=== PATIENT | male | born 1945 | race Caucasian/White ===

== ENCOUNTER 2020-03-20 16:59 | Observation (INO) ==
[2020-03-20] MEDS ORDERED: 0.9 % Sodium Chloride 1,000 ML IVC ONE (17:31)
[2020-03-20 18:07] LABS: Basophils % 0.4 %; Eosinophils # 0.1 K/mcL (0.0-0.6); Eosinophils % 1.1 %; Hematocrit 42.4 % (37.5-50.1); Hemoglobin 14.1 g/dL (12.9-16.9); Immature Granulocytes % 0.1 % (0-4); Lymphocytes % 54.4 %; Mean Corpuscular HGB Conc 33.3 g/dL (31.6-35.5); Mean Corpuscular Hemoglobin 31.1 pg (28.0-33.3); Mean Corpuscular Volume 93.4 fL (83.0-100.0); Mean Platelet Volume 9.2 fL (9.4-12.4); Monocytes # 0.9 K/mcL (0.0-1.3); Monocytes % 9.4 %; Neutrophils # 3.2 K/mcL (1.6-8.9); Platelet Count 194 K/mcL (140-400); Red Blood Count 4.54 M/mcL (4.19-5.50); Red Cell Distribution Width 13.4 % (11.5-14.5); Segmented Neutrophils % 34.6 %; White Blood Count 9.3 K/mcL (4.3-11.1)
[2020-03-20 18:27] LABS: BUN/Creatinine Ratio 13 (6-26); Blood Urea Nitrogen 12 mg/dL (8-23); Calcium 9.2 mg/dL (8.6-10.3); Carbon Dioxide 27 mEq/L (23-29); Chloride 106 mEq/L (98-107); Glucose 122 mg/dL (70-105); Magnesium 1.8 mg/dL (1.6-2.6); Osmolality,Calculated 291 (280-300); Potassium 3.4 mEq/L (3.5-5.1); Sodium 140 mEq/L (136-145); Troponin I < 0.03 ng/mL (< 0.04); eGFR For African Americans > 60 (> 60); eGFR For Non-African Americans > 60 (> 60)
[2020-03-20 18:41] LABS: Thyroid Stimulating Hormone 1.489 mcIU/mL (0.340-5.600)
[2020-03-20] MEDS ORDERED: *HR* LORazepam 0.5 MG TABLET PO ONE (19:30)
[2020-03-20] MEDS ORDERED: Ondansetron ODT 4 MG TAB.RAPDIS SL PRN (20:18)
[2020-03-20] MEDS ORDERED: Acetaminophen 325 MG TABLET PO PRN (20:18)
[2020-03-20] MEDS ORDERED: Naloxone 0.4 MG/ML INJ IVP PRN (20:18)
[2020-03-20] MEDS ORDERED: *HR* Metoprolol 5 MG/5 ML VIAL IVP PRN (20:21)
[2020-03-20] MEDS ORDERED: *HR* LORazepam 0.5 MG TABLET PO PRN (20:21)
[2020-03-20] MEDS ORDERED: Perflutren Lipid Microsphere 1.3 ML in 0.9 % Sodium Chloride 8.7 ML IVP PRN (20:25)
[2020-03-20] MEDS ORDERED: Ipratropium/Albuterol Neb 3 ML IH PRN (20:26)
[2020-03-20] MEDS: Venlafaxine XR (24 HR) 75 MG CAP.ER.24H PO SCH (21:12)
[2020-03-20] MEDS: *HR* Enoxaparin 30 MG/0.3 ML SYRINGE SQ SCH (21:28)
[2020-03-20] MEDS: Budesonide/Formoterol 80/4.5 1 PUFF INH IH SCH (22:16)
[2020-03-21] MEDS ORDERED: *HR* Heparin 5,000 UNIT/ML VIAL SQ SCH (06:00)
[2020-03-21 08:05] LABS: Hematocrit 41.5 % (37.5-50.1); Hemoglobin 13.5 g/dL (12.9-16.9); Mean Corpuscular HGB Conc 32.5 g/dL (31.6-35.5); Mean Corpuscular Hemoglobin 30.8 pg (28.0-33.3); Mean Corpuscular Volume 94.5 fL (83.0-100.0); Mean Platelet Volume 9.2 fL (9.4-12.4); Platelet Count 186 K/mcL (140-400); Red Blood Count 4.39 M/mcL (4.19-5.50); Red Cell Distribution Width 13.6 % (11.5-14.5); White Blood Count 8.6 K/mcL (4.3-11.1)
[2020-03-21] MEDS: Budesonide/Formoterol 80/4.5 1 PUFF INH IH SCH (08:14)
[2020-03-21] MEDS: *HR* Enoxaparin 30 MG/0.3 ML SYRINGE SQ SCH (08:17)
[2020-03-21] MEDS: Venlafaxine XR (24 HR) 75 MG CAP.ER.24H PO SCH (08:17)
[2020-03-21 08:23] LABS: Magnesium 2.3 mg/dL (1.6-2.6); Phosphorous 3.1 mg/dL (2.7-4.5)
[2020-03-21 08:26] LABS: BUN/Creatinine Ratio 9 (6-26); Blood Urea Nitrogen 9 mg/dL (8-23); Calcium 8.5 mg/dL (8.6-10.3); Carbon Dioxide 27 mEq/L (23-29); Chloride 111 mEq/L (98-107); Glucose 95 mg/dL (70-105); Osmolality,Calculated 294 (280-300); Potassium 4.3 mEq/L (3.5-5.1); Sodium 143 mEq/L (136-145); eGFR For African Americans > 60 (> 60); eGFR For Non-African Americans > 60 (> 60)
[2020-03-21] MEDS ORDERED: amLODIPine 5 MG TABLET PO SCH (09:00)
[2020-03-21] MEDS ORDERED: Propranolol LA (24 HR) 60 MG CAP.SA.24H PO SCH (09:00)
[2020-03-21 09:06] LABS: INR 1.1; Prothrombin Time 12.2 Seconds (9.4-12.1)
[2020-03-21 11:29] VITALS: BP 129/80
[2020-03-21] MEDS ORDERED: Ipratropium/Albuterol Neb 3 ML IH ONE (20:27)
[2020-03-22] MEDS ORDERED: *HR* Enoxaparin 40 MG/0.4 ML SYRINGE SQ SCH (06:00)
[2020-03-22] MEDS ORDERED: Venlafaxine XR (24 HR) 75 MG CAP.ER.24H PO SCH (21:00)
== END 2020-03-21 16:49 | disposition home or self-care (01) ==
LOC: EMEROOARM 16:59 → 2ANU 16:59
PROVIDERS: ADMIT Family Medicine; ATTEND Family Medicine